=== PATIENT | male | born 1955 | race Caucasian/White ===

== ENCOUNTER 2020-04-19 22:15 | Emergency (ER) | payer SELFPAY ==
[2020-04-19] MEDS ORDERED: EPINEPHrine 1:10,000 1 MG/10 ML Syringe IVPUSH ONE ×2 (22:18→22:22)
--- NOTE | 2020-04-19 22:45 | PCM.SN.2 ---
- Free Text/Narrative Note: ANESTHESIA SERVICES Date: 04/19/2020 Time: 2214 to 2226 Dx: Active Cardiac Arrest Rx: Airway Management I was called to the ED for an in-route cardiac arrest by the ED physician. Upon arrival, high-quality CPR was being done and a #5 Yasmany Airway was in-place. It should be noted that emesis debris was in the tube and continuous EtCO2 connector. Breath sounds were decreased on the right with positive EtCO2 return. His face is very cyanotic with an edematous right side to mid-line n angelique. His pupils are dilated and fixed at 6 mm. No pulse was detected per left carotid. I asked the ED physician if he wished me to place an ETT [very difficult airway with attempts per the [employer]] and he wished to wait. No actions of any kind was preformed by me. Mick Sandra CRNA, A
--- NOTE | 2020-04-21 07:35 | ER ---
DATE SEEN: 04/19/2020 Code Note HISTORY OF PRESENT ILLNESS: This is a 64-year-old male who was brought in by ambulance with ACLS resuscitation protocol in progress. He apparently collapsed and the ambulance was notified at 2130 hours. The police department already on the scene started resuscitation,within 5 min of collapse.. He had complained of shortness of breath, just before he collapsed at the entrance to a local bar. In speaking to his sister, he has a history of multiple stents and cardiovascular problems. On the scene, intubation was attempted. CPR was initiated with a MARTIN, and an IO was obtained in the right tibia. He got more than 7 electric shocks for VFib and pulseless ventricular tachycardia and also received multiple doses of epinephrine. He had a total of 450 mg of amiodarone before arrival,following the ACLS algorithm.. On arrival, CPR was in progress, but he was cyanotic on the face and pupils were 5 mm dilated and fixed. He had agonal breaths and had PEA and terminal asystole. He got 2 more doses of epinephrine while continuing effective CPR,evidenced by good levels on Co2 Capnography. Arrival time was about 1015 and at 1023 we called off the resuscitation because he was in asystole that was refractory. We pronounced him at 1023 hours. /[id number] GABRIELE/CHARLENE MATTHEWS
== END 2020-04-20 02:14 | disposition expired ==
LOC: FB.ED 22:15
DX: I46.9 Cardiac arrest, cause unspecified (principal)
CPT/HCPCS: 31500; 36680; 92950; 96374; 99285; J0171